=== PATIENT | male | born 1975 | race Caucasian/White ===

== ENCOUNTER 2021-11-06 08:32 | Inpatient (IN) | payer MEDICAID ==
[2021-10-30 15:47] LABS: BASOPHILS # (AUTO) 0.1 X10'3 (0-0.2); EOSINOPHILS # (AUTO) 0.3 X10'3 (0-0.9); EOSINOPHILS % (AUTO) 3.3 % (0-6); LYMPHOCYTES # (AUTO) 2.4 X10'3 (1.1-4.8); LYMPHOCYTES % (AUTO) 29.8 % (21-51); MEAN CORPUSCULAR HEMOGLOBIN 30.6 PG (27.0-31.0); MEAN CORPUSCULAR HGB CONC 33.6 g/dL (33.0-36.5); MEAN PLATELET VOLUME 8.6 FL (7.4-10.4); MONOCYTES # (AUTO) 0.6 X10'3 (0-0.9); MONOCYTES % (AUTO) 7.8 % (2-12); NEUTROPHILS # (AUTO) 4.8 X10'3 (1.8-7.7); NEUTROPHILS % (AUTO) 58.1 % (42-75); PRE OP HEMATOCRIT 43.8 % (42.0-52.0); PRE OP HEMOGLOBIN 14.7 g/dL (14.0-17.9); PRE OP PLATELET COUNT 240 X10'3 (140-440); RED BLOOD COUNT 4.82 X10'6 (4.70-6.10); RED CELL DISTRIBUTION WIDTH 14.2 % (11.5-14.5)
[2021-10-30 15:56] LABS: PRE OP PROTIME 10.4 SECONDS (9.0-12.0)
[2021-10-30 15:57] LABS: ALBUMIN 4.2 G/DL (3.4-5.0); ALBUMIN/GLOBULIN RATIO 1.3 (1.1-1.5); ALKALINE PHOSPHATASE 40 IU/L (46-116); BLOOD UREA NITROGEN 9 MG/DL (7-18); BUN/CREATININE RATIO 12.3 (5.4-32.0); CALCIUM 8.7 MG/DL (8.5-10.1); CHLORIDE 104 MMOL/L (99-107); CREATININE 0.73 MG/DL (0.60-1.10); PRE OP ALT 33 U/L (30-65); PRE OP ANION GAP 8 (8-16); PRE OP AST 22 U/L (10-37); PRE OP BILIRUB, TOTAL 0.5 MG/DL (0.0-1.0); PRE OP GLUCOSE 74 MG/DL (70-104); PRE OP POTASSIUM 3.7 MMOL/L (3.4-5.1); PRE OP SODIUM 141 MMOL/L (135-145); TOTAL CARBON DIOXIDE 28.8 MMOL/L (24-32); TOTAL PROTEIN 7.4 G/DL (6.4-8.2); eGFR > 90 ML/MIN
[2021-11-06] VITALS (21 sets, daily range): BP systolic 92–145; BP diastolic 55–82
[~2021-11-06] VITALS: Ht 172.7 cm; Wt 61.2 kg
[2021-11-06] MEDS: azelastine Nasal Spray bottle NS SCH ×2 (08:00→20:00)
[2021-11-06] MEDS: ascorbic acid 500mg tablet PO SCH ×2 (08:00→20:19)
[2021-11-06] MEDS: multivitamins, therapeutics tablet PO SCH (08:00)
[2021-11-06] MEDS: gabapentin 300mg capsule PO SCH ×3 (08:00→20:30)
[2021-11-06] MEDS: aspirin 325mg tablet PO SCH (08:30)
[~2021-11-06 08:32] MED LIST: ACET-2319 PO; AZEL137S4 BOTHNARES; FEXO180T94 PO; GABA-530 PO; HYDROcodone/acetaminophen 10/325mg tab PO PRN; HYDROmorphone inj. 0.5 MG/0.5 ML DISP.SYRIN IV PRN; MELO-100 PO; acetaminophen 325mg tablet PO ONE; acetaminophen 325mg tablet PO PRN; bisacodyl 10mg suppository rectal RC PRN; ceFAZolin inj. 2,000 MG in dextrose 5%-water 100 ML IV ONE; ceFAZolin/D5W- 1GM premix 50 ML IV SCH; celeCOXIB 100mg capsule PO ONE; diphenhydrAMINE 25mg capsule PO PRN; famotidine 20mg tablet PO ONE; gabapentin 300mg capsule PO ONE; magnesium hydroxide 30ml (MOM) UD suspension PO PRN; metoclopramide 5 mg/ml inj IV ONE; naloxone 0.4 mg/ml inj IV PRN; non-formulary drug (Fexofenadine* (Allegra*) 1 TAB) PO SCH; ondansetron/PF 4mg/2ml inj IV PRN; oxyCODONE SR 10mg (sust. release) tab -2 tabs (20mg) PO ONE; ringers solution, lacted 1,000 ML IV SCH; tranexamic acid inj. 1,000 MG in 0.7% saline 100 ML PMX IV ONE; vancomycin/NS 1 GM in NS 250 ML IV ONE
[2021-11-06] MEDS ORDERED: vancomycin 1,000mg inj ONE (10:47)
[2021-11-06] MEDS ORDERED: cloNIDine hcl/PF 100mcg/ml inj ONE (10:47)
[2021-11-06] MEDS ORDERED: ketorolac trometh. 30mg/ml inj. ONE (10:47)
[2021-11-06] MEDS ORDERED: ROPIVAcaine 0.5% (5mg/ml) 30ml vial ONE (10:47)
[2021-11-06] MEDS ORDERED: epiNEPHrine 1 mg/ml inj ONE (10:47)
[2021-11-06] MEDS ORDERED: fentaNYL/PF 50MCG/1 ML 2ML syringe ONE ×2 (11:13→12:04)
[2021-11-06] MEDS ORDERED: MIDAZolam 1 MG/ML 5ML VIAL ONE (11:13)
[2021-11-06] MEDS ORDERED: ketamine 50mg/5ml syringe ONE (12:09)
[2021-11-06] MEDS ORDERED: propofol inj 40 ML IV ONE (12:42)
[2021-11-06] MEDS ORDERED: diphenhydrAMINE 50 mg/ml inj ONE (12:42)
[2021-11-06] MEDS ORDERED: ePHEDrine 50MG/ML INJ. ONE (12:47)
--- NOTE | 2021-11-06 13:13 | NUR ---
Received from OR via BED, accompanied by Anesthesiologist DR JEFFRIES and report given by Anesthesiologist AND STEEL DETAILER. PT DROWSY, DENIES PAIN. RIGHT HIP/UPPER THIGH W/LAURIE DRAIN DRSG CDI W/GREEN LIGHT ILLUMINATION. LEG BRACE ON AND IN PLACE, POWDER PACK PLACED. XRAY OBTAINED.DERMATOME LEVEL L-2. Addendum: 11/06/21 at 1352 by Jacinda Huizar RN Amended: Links added.
[2021-11-06] MEDS ORDERED: proCHLORperazine 10 MG/2 ml inj IV PRN (13:20)
[2021-11-06] MEDS ORDERED: ondansetron/PF 4mg/2ml inj IV PRN (13:20)
[2021-11-06] MEDS ORDERED: meperidine/PF 25mg/ml syringe IV PRN ×3 (13:20)
[2021-11-06] MEDS ORDERED: morphine 4 MG/ML inj SYRINge IV PRN (13:20)
[2021-11-06] MEDS ORDERED: ringers solution, lacted 1,000 ML IV SCH (13:20)
[2021-11-06] MEDS ORDERED: morphine 2 MG/ML inj. syringe IV PRN (13:20)
[2021-11-06] MEDS ORDERED: loratadine 10mg tablet PO SCH (14:52)
[2021-11-06] MEDS: potassium cl 20mEq in 1/2 NS 1,000 ML IV SCH ×3 (15:00→23:00)
--- NOTE | 2021-11-06 15:23 | NUR ---
Report called to receiving nurse. Transferred via BED W/1 BAG OF Belongings, BLL, CALL LIGHT GIVEN, SIDE RAILS UP X 2. PT ORIENTED TO SELF AND ROOM. EIGHT SECTION BLOWER NOTIFIED OF PTS ARRIVAL. Special Issues communicated to receiving nurse. YES. Addendum: 11/06/21 at 1533 by Jacinda Huizar RN Amended: Links added.
[2021-11-06] MEDS ORDERED: tranexamic acid inj. 600 MG in normal saline 100ml IV soln 94 ML IV ONE (16:15)
[2021-11-06] MEDS: HYDROcodone/acetaminophen 10/325mg tab PO PRN ×2 (16:37→22:52)
[2021-11-06] MEDS: ceFAZolin/D5W- 1GM premix 50 ML IV SCH (17:52)
--- NOTE | 2021-11-06 18:25 | NUR ---
Problems reprioritized. Patient report given, questions answered & plan of care reviewed with PRUDENCE RN.
--- NOTE | 2021-11-06 18:44 | NUR ---
Patient in room [facility] 4021. I have received report from MADIE EDWARDS and had the opportunity to ask questions and assume patient care.
[2021-11-06] MEDS: HYDROmorphone 1 mg/ml syringe IV PRN (20:19)
[2021-11-06] MEDS ORDERED: sennosides 8.6mg tablet PO SCH (21:00)
[2021-11-06] MEDS ORDERED: vancomycin/NS 1 GM ADD-VANTAGE 250 ML IV SCH (21:00)
[2021-11-07] MEDS: ceFAZolin/D5W- 1GM premix 50 ML IV SCH (00:15)
[2021-11-07 02:00] VITALS: BP 106/70
[2021-11-07] MEDS: HYDROmorphone 1 mg/ml syringe IV PRN (02:22)
[2021-11-07 05:00] VITALS: BP 106/67
[2021-11-07] MEDS: HYDROcodone/acetaminophen 10/325mg tab PO PRN ×2 (05:07→10:08)
--- NOTE | 2021-11-07 06:15 | NUR ---
Patient in room [facility]TH[facility] 4021. I have received report from Gabriella EDWARDS and had the opportunity to ask questions and assume patient care.
--- NOTE | 2021-11-07 06:16 | NUR ---
Problems reprioritized. Patient report given, questions answered & plan of care reviewed with GABRIELLA EDWARDS.
[2021-11-07 06:56] LABS: BASOPHILS # (AUTO) 0.1 X10'3 (0-0.2); BASOPHILS % (AUTO) 0.8 % (0-1); EOSINOPHILS # (AUTO) 0.2 X10'3 (0-0.9); EOSINOPHILS % (AUTO) 2.2 % (0-6); HEMATOCRIT 39.2 % (42.0-52.0); HEMOGLOBIN 13.2 g/dl (14.0-17.9); LYMPHOCYTES # (AUTO) 1.8 X10'3 (1.1-4.8); LYMPHOCYTES % (AUTO) 20.4 % (21-51); MEAN CORPUSCULAR HEMOGLOBIN 31.2 PG (27.0-31.0); MEAN CORPUSCULAR HGB CONC 33.7 g/dL (33.0-36.5); MEAN CORPUSCULAR VOLUME 92.5 FL (78-98); MEAN PLATELET VOLUME 9.1 FL (7.4-10.4); MONOCYTES % (AUTO) 11.3 % (2-12); NEUTROPHILS # (AUTO) 5.7 X10'3 (1.8-7.7); NEUTROPHILS % (AUTO) 65.3 % (42-75); PLATELET COUNT 197 X10'3 (140-440); RED BLOOD COUNT 4.24 X10'6 (4.70-6.10); RED CELL DISTRIBUTION WIDTH 14.3 % (11.5-14.5); WHITE BLOOD COUNT 8.7 X10'3 (4.5-11.0)
[2021-11-07 07:15] LABS: ANION GAP 7 (8-16); CHLORIDE 108 MMOL/L (99-107); POTASSIUM 3.9 MMOL/L (3.5-5.1); SODIUM 141 MMOL/L (135-145); TOTAL CARBON DIOXIDE 25.8 MMOL/L (24-32)
[2021-11-07] MEDS: multivitamins, therapeutics tablet PO SCH (07:32)
[2021-11-07] MEDS: gabapentin 300mg capsule PO SCH (07:32)
[2021-11-07] MEDS: ascorbic acid 500mg tablet PO SCH (07:32)
[2021-11-07] MEDS: azelastine Nasal Spray bottle NS SCH (07:34)
[2021-11-07 10:00] VITALS: BP 96/55
[2021-11-07] MEDS: aspirin 325mg tablet PO SCH (10:04)
[2021-11-07] MEDS ORDERED: celeCOXIB 100mg capsule PO SCH (20:00)
== END 2021-11-07 10:40 | disposition home or self-care (01) | DRG 324 ==
LOC: PAS 08:32 → PAS IN 08:33 → EDSTATUS 10:15 → ORTHO 4S 15:16
PROVIDERS: ADMIT Orthopaedic Surgery; ATTEND Orthopaedic Surgery
PROC: 0SR906Z Replacement of Right Hip Joint with Oxidized Zirconium on Polyethylene Synthetic Substitute, Open Approach (ICD-10-PCS; principal; 2021-11-06 11:47)
DX: M16.11 Unilateral primary osteoarthritis, right hip (principal); Z79.82 Long term (current) use of aspirin; Z87.891 Personal history of nicotine dependence; Z79.899 Other long term (current) drug therapy
CPT/HCPCS: 36415; 72170; 80051; 80053; 82948; 85025; 85610; 85730; 86885; 86900; 86901; 87081; 97116; 97161; 97530; A7000; C1776; G0378; J0171; J0690; J0735; J1170; J1200; J1885; J2250; J2704; J2765; J2795; J3010; J3370; J3480; J3490; J7060; J7120